=== PATIENT | female | born 1960 ===

== ENCOUNTER → 2021-03-23 | Outpatient (CLI) | payer OTHER ==
--- NOTE | 2021-03-24 08:12 | RAD ---
EXAM: AP and lateral views of the cervical spine DATE: 03/23/2021 11:05 AM CLINICAL HISTORY: Reason: NECK PAIN / Spl. Instructions: / History: COMPARISON: None available. FINDINGS: On the lateral view, the cervical spine is imaged from the skull base to C7. Vertebral body heights are preserved. Postoperative changes of C4-C7 ACDF. Solid interbody fusion C4- C5, C5-6. No definite bony fusion C6-7. Mild C3-C4. No spondylolisthesis. Straightening of the normal cervical lordosis. Normal predental space. No significant prevertebral soft tissue swelling. IMPRESSION: 1. Multilevel spondylosis as above 2. Negative acute fracture or subluxation. 3. Postoperative changes of ACDF C4-C7. Electronically signed by: Sebastien Valdez MD (03/24/2021 8:10 AM) [id number]
== END ==
LOC: RAD 10:45
PROVIDERS: ATTEND Family Medicine
DX: M47.812 Spondylosis without myelopathy or radiculopathy, cervical region (principal)
CPT/HCPCS: 72040